=== PATIENT | male | born 1975 | race Caucasian/White ===

== ENCOUNTER 2017-05-08 18:50 | Emergency (ER) | payer OTHER ==
[~2017-05-08] VITALS: Ht 180.3 cm; Wt 100.0 kg
[~2017-05-08 18:50] MED LIST: ACET500T98; CEPH-443 PO; HYDR-762 PO; IBUP-1542 PO; IBUP200C11; IBUP800T25 PO
[2017-05-08 18:54] VITALS: Ht 180.3 cm; Wt 100.0 kg
[2017-05-08] MEDS ORDERED: KETOROLAC 30 MG INJ IV STA (19:14)
[2017-05-08] MEDS ORDERED: SOD CHLORIDE 0.9% 1,000 ML IV STA (19:14)
[2017-05-08 19:53] LABS: ADD SCAN DIFF NO
[2017-05-08 19:59] LABS: ABNORMAL IP MESSAGE 1; HEMATOCRIT 41.4 % (42.0-52.0); HEMOGLOBIN 13.8 g/dl (14.0-18.0); MEAN CORPUSCULAR HEMOGLOBIN 30.9 pg (29.0-33.0); MEAN CORPUSCULAR HGB CONC 33.3 g/dl (32.0-37.0); MEAN CORPUSCULAR VOLUME 92.8 fl (82.0-101.0); MEAN PLATELET VOLUME 10.3 fl (7.4-10.4); PLATELET COUNT 253 10^3/UL (140-415); RED BLOOD COUNT 4.46 10^6/ul (4.70-6.10); RED CELL DISTRIBUTION WIDTH 14.9 % (11.5-14.5); WHITE BLOOD COUNT 22.6 10^3/ul (4.8-10.8)
[2017-05-08 20:12] LABS: INR 0.86; PROTIME 11.7 Sec (12.2-14.2); PT RATIO 0.9
[2017-05-08 20:13] LABS: PARTIAL THROMBOPLASTIN TIME 27.5 Sec (25.0-35.0)
[2017-05-08 20:17] LABS: ADD UMIC YES; UR AMORPHOUS CRYSTAL FEW /HPF (NONE SEEN); UR ASCORBIC ACID NEGATIVE (NEGATIVE); UR BACTERIA FEW /HPF (NONE SEEN); UR BILIRUBIN (Dip) NEGATIVE (NEGATIVE); UR BLOOD (Dip) 3+ mg/dL (NEGATIVE); UR CLARITY TURBID (CLEAR); UR COLOR RED (YELLOW); UR GLUCOSE (Dip) NEGATIVE (NEGATIVE); UR KETONES (Dip) TRACE mg/dL (NEGATIVE); UR LEUKOCYTE ESTERASE (Dip) 3+ Leu/ul (NEGATIVE); UR NITRITE (Dip) NEGATIVE (NEGATIVE); UR RBC > 182 /HPF (0-5); UR SPECIFIC GRAVITY (Dip) 1.016 (1.003-1.030); UR TOTAL PROTEIN (Dip) 2+ mg/dl (NEGATIVE); UR UROBILINOGEN (Dip) 1+ mg/dL (NEGATIVE)
[2017-05-08 20:18] LABS: ALBUMIN 3.9 g/dl (3.3-4.9); ALBUMIN/GLOBULIN RATIO 1.34; BILIRUBIN,INDIRECT 0.6 mg/dl (0-1.1); BILIRUBIN,TOTAL 0.6 mg/dl (0.2-1.3); CALCIUM 9.1 mg/dl (8.4-10.2); CREATININE 1.04 mg/dl (0.61-1.24); TOTAL PROTEIN 6.8 g/dl (6.1-8.1)
[2017-05-08] MEDS ORDERED: CEFTRIAXONE 1 GM/50 ML (PMX) 50 ML IVPB ONE (20:30)
[2017-05-08 21:02] LABS: LYMPHOCYTES # 1.4 10^3/ul (0.8-2.9); MONOCYTE # 2.5 10^3/ul (0.3-0.9); NEUTROPHIL # 18.1 10^3/ul (1.6-7.5)
[2017-05-08 21:05] LABS: PLATELET ESTIMATE PLT APPEAR ADEQUATE
--- NOTE | 2017-05-08 21:17 | RADRPT ---
PROCEDURE: CT scan of the abdomen and pelvis without IV contrast. CLINICAL INDICATION: Left lower quadrant abdominal pain. TECHNIQUE: Thin section axial, coronal and sagittal images were performed through the abdomen and pelvis without contrast. Radiation Dose: CTDI: 18.5 and DLP: 1285 One or more of the following dose reduction techniques were used: - Automated exposure control. - Adjustment of the mA and/or kV according to patient size. Use of iterative reconstruction technique. COMPARISON: Chest x-ray 11/22/2016 06:18 a.m. FINDINGS: Soft tissues: Normal. Lungs and pleural spaces: There is some peripheral atelectasis in the right lower lobe. There is so me atelectasis in the dorsal lingula. Heart: The heart is normal in size. There are vascular calcifications in the left descending trevino ry artery. The liver, common bile duct and gallbladder: Liver is enlarged measuring 20 cm AP. No hepatic mass is identified. There is no evidence of gallbladder wall thickening. There is a 2.4 cm cholelith in the gallbladder. Gastrointestinal: The stomach and small bowel loops are normal. There is no evidence of a hiatal he rnia. There is a midline umbilical hernia containing fat measuring 2.6 cm AP with the neck of the h ernia measuring 2.3 cm transverse. There are small amounts of fat in the right left inguinal canals but no entrapped bowel loop. The vermiform appendix and colon are unremarkable. Pancreas: The pancreas and extrahepatic common bile duct are normal. Kidneys, bladder and adrenal glands : The adrenal glands are normal. There is a 1 mm nonobstructive nephrolith in the lower pole of the right kidney. The kidneys are otherwise normal. The urinary b ladder is unremarkable. Spleen: Normal. Lymph nodes: Normal. Reproductive system and pelvis : The seminal vesicles are enlarged. The left is larger than the rig ht. There is stranding adjacent to the seminal vesicles more prominent on the left side. The prost ate gland measures 4.5 x 3.1 cm. Bony elements: There is disk space narrowing and ventral spondylosis at L5-S1. There are ventral os teophytes off of L5. There are ventral bridging osteophytes at L5-S1. There is a ventral osteophyt e off the superior plate of T12. No bone metastasis or acute bony fracture is identified. There ar e degenerative changes around the right T9 costovertebral junction. Vasculature: There are vascular calcifications in the mid and lower abdominal aorta, common iliac ar teries, internal iliac arteries and common femoral arteries. IMPRESSION: 1. There is extensive stranding around the seminal vesicles more prominent around the left seminal vesicle than right. Etiology is unknown. Rule out inflammatory/neoplastic etiologies. Urological c onsultation should be considered. 2. Midline umbilical hernia containing fat. 3. Areas of atelectasis in the right lower lobe and dorsal lingula. 3. Atherosclerotic vascular disease also involving the coronary arteries. 5. Hepatomegaly. 6. 2.4 cm cholelith in the gallbladder. RPTAT:AAJJ Physician Alexys Date Time Electronically viewed and signed by Physician Alexys on 05/08/2017 21:16 /
[2017-05-08] MEDS ORDERED: SOD CHLORIDE 0.9% 1,000 ML IV ONE (21:30)
--- NOTE | 2017-05-08 21:51 | ERD ---
ER Documentation Chief Complaint Date/Time DATE: 05/08/17 TIME: 21:49 Chief Complaint left abdominal pain/fever x 2 days HPI Patient is a 42-year-old male with past medical history of hypertension, insomnia and depression who presents to the emergency department with left lower quadrant abdominal pain 2 days. Pain is constant and sharp in nature. Patient also reports hematuria and dysuria. Patient denies any flank pain. Patient does admit to tactile fevers and chills. Patient has not taken any antipyretics for his fever. Patient denies any upper abdominal pain, nausea, vomiting, diarrhea, rectal bleeding, chest pain, SOB or loss of consciousness. Patient denies any recent travel. No sick contacts. Patient is sexually active. ROS All systems reviewed and are negative except as per history of present illness. Medications Home Meds Active Scripts Hydrocodone/Acetaminophen ([place] 5-325 Tablet) 1 Each Tablet, 1 TAB PO Q6H Y for PAIN, #7 TAB Prov:WING WHITMAN PA-C 05/08/17 Levofloxacin* (Levofloxacin*) 250 Mg Tablet, 250 MG PO DAILY for 10 Days, TAB Prov:WING WHITMAN PA-C 05/08/17 Ibuprofen* (Motrin*) 800 Mg Tab, 800 MG PO Q6H Y for PAIN AND OR ELEVATED TEMP, #30 TAB Prov:YEE VALERA NP 04/24/15 Cephalexin* (Keflex*) 500 Mg Capsule, 500 MG PO QID for 7 Days, CAP Prov:YEE VALERA NP 04/24/15 Hydrocodone Bit-Acetaminophen* ([place]*) 10-325 Mg Tablet, 1 TAB PO Q6 Y for PAIN , #14 TAB Prov:ROGER HERRERA PA-C 04/09/15 Ibuprofen* (Motrin*) 600 Mg Tab, 600 MG PO Q6, #20 TAB Prov:ROGER HERRERA PA-C 04/09/15 Reported Medications Acetaminophen (Tylenol) 500 Mg Tab, PRN 06/07/11 Ibuprofen* (Advil*) 200 Mg Capsule, PRN 06/07/11 Allergies Allergies: Coded Allergies: No Known Allergy (Unverified , 05/08/17) PMhx/Soc History of Surgery: Yes (RT LEG ) Anesthesia Reaction: No Hx Neurological Disorder: Yes (lumbar back pain) Hx Respiratory Disorders: No Hx Cardiac Disorders: Yes (HTN) Hx Psychiatric Problems: Yes (insomnia, DEPRESSION ) Hx Miscellaneous Medical Probl: No Hx Alcohol Use: Yes Hx Substance Use: No Hx Tobacco Use: Yes Smoking Status: Current every day smoker Physical Exam Vitals Vital Signs Date Time Temp Pulse Resp B/P Pulse Ox O2 Delivery O2 Flow Rate FiO2 05/09/17 00:05 99.6 83 18 127/83 100 Room Air 05/08/17 18:54 102.5 122 20 122/79 97 Physical Exam GENERAL: Well-developed, well-nourished male. Appears in pain. HEAD: Normocephalic, atraumatic. EYES: Pupils are equally reactive bilaterally. EOMs grossly intact. No conjunctival erythema. ENT: Moist mucous membranes. No uvula deviation. No kissing tonsils. NECK: Supple. No meningismus. Normal range of motion of the neck. LUNG: Clear to auscultation bilaterally. No rhonchi, wheezing, rales or coarse breath sounds. HEART: Regular rate and rhythm. No murmurs, rubs or gallops. ABDOMEN: Soft and nondistended. Tender to palpation in the left lower quadrant. Guarding noted. Positive bowel sounds in all four quadrants. (-) McBurney's point tenderness. Left sided CVA tenderness noted. EXTREMITIES: Equal pulses bilaterally. No peripheral clubbing, cyanosis or edema. No unilateral leg swelling. NEUROLOGIC: Alert and oriented. Moving all four extremities without any difficulty. Normal speech. Steady gait. SKIN: Normal color. Warm and dry. No rashes or lesions. Result Diagram: 05/08/17193405/08/171934 Results 24 hrs Laboratory Tests Test 05/08/17 19:35 05/08/17 21:33 White Blood Count 22.610^3/ul Red Blood Count 4.4610^6/ul Hemoglobin 13.8g/dl Hematocrit 41.4% Mean Corpuscular Volume 92.8fl Mean Corpuscular Hemoglobin 30.9pg Mean Corpuscular Hemoglobin Concent 33.3g/dl Red Cell Distribution Width 14.9% Platelet Count 62576^3/UL Mean Platelet Volume 10.3fl Neutrophils % 80.0% Band Neutrophils % 3.0% Lymphocytes % 6.0% Monocytes % 11.0% Neutrophils # 18.110^3/ul Lymphocytes # 1.410^3/ul Monocytes # 2.510^3/ul Platelet Estimate PLT APPEAR ADEQUATE Prothrombin Time 11.7Sec Prothrombin Time Ratio 0.9 INR International Normalized Ratio 0.86 Activated Partial Thromboplast Time 27.5Sec Urine Color RED Urine Clarity TURBID Urine pH 6.0 Urine Specific Ramsay 1.016 Urine Ketones TRACEmg/dL Urine Nitrite NEGATIVEmg/dL Urine Bilirubin NEGATIVEmg/dL Urine Urobilinogen 1+mg/dL Urine Leukocyte Esterase 3+Dandre/ul Urine Microscopic RBC > 182/HPF Urine Microscopic WBC > 182/HPF Urine Amorphous Crystals FEW/HPF Urine Bacteria FEW/HPF Urine Hemoglobin 3+mg/dL Urine Glucose NEGATIVEmg/dL Urine Total Protein 2+mg/dl Sodium Level 140mmol/L Potassium Level 4.0mmol/L Chloride Level 97mmol/L Carbon Dioxide Level 28mmol/L Anion Gap 19 Blood Urea Nitrogen 12mg/dl Creatinine 1.04mg/dl Glucose Level 104mg/dl Lactic Acid Level 1.4mmol/L 0.7mmol/L Calcium Level 9.1mg/dl Total Bilirubin 0.6mg/dl Direct Bilirubin 0.00mg/dl Indirect Bilirubin 0.6mg/dl Aspartate Amino Transf (AST/SGOT) 24IU/L Alanine Aminotransferase (ALT/SGPT) 44IU/L Alkaline Phosphatase 49IU/L Total Protein 6.8g/dl Albumin 3.9g/dl Globulin 2.90g/dl Albumin/Globulin Ratio 1.34 Lipase 40U/L Current Medications Medications (Trade) Dose Ordered Sig/Josephine Route PRN Reason Start Time Stop Time Status Last Admin Dose Admin Sodium Chloride (NS) 1,000 ml @ 1,000 mls/hr Q1H STAT IV 05/08/17 19:14 05/08/17 20:13 DC 05/08/17 19:26 Ketorolac Tromethamine 30 mg 30 mg ONCE STAT IV 05/08/17 19:14 05/08/17 19:17 DC 05/08/17 19:29 Ceftriaxone Sodium 50 ml @ 100 mls/hr ONCE ONCE IVPB 05/08/17 20:30 05/08/17 20:59 DC 05/08/17 20:53 Sodium Chloride (NS) 1,000 ml @ 1,000 mls/hr Q1H ONCE IV 05/08/17 21:30 05/08/17 22:29 DC 05/08/17 21:31 Ceftriaxone Sodium (Rocephin) 250 mg ONCE ONCE IM 05/08/17 23:00 05/08/17 23:01 DC 05/08/17 23:46 Lidocaine (Xylocaine 1% (Mdv) 20 ml) 20 ml ONCE ONCE SC 05/08/17 23:00 05/08/17 23:01 DC 05/08/17 23:46 Azithromycin (Zithromax) 1,000 mg ONCE ONCE PO 05/08/17 23:00 05/08/17 23:01 DC 05/08/17 23:46 Procedures/MDM ED COURSE: The patient was stable throughout ED course. I kept the patient and/or family informed of laboratory and diagnostic imaging results throughout the ED course. DIAGNOSTIC IMAGING: Read by radiologist. DIAGNOSTIC IMAGING REPORT Patient: JILLIAN DEL CASTILLO : 1975 Age: 42 Sex: M MR #: [id number] DOS: 05/08/171957 Ordering MD: WING WHITMAN PA-C Location: [facility] Room/Bed: PROCEDURE: CT scan of the abdomen and pelvis without IV contrast. CLINICAL INDICATION: Left lower quadrant abdominal pain. TECHNIQUE: Thin section axial, coronal and sagittal images were performed through the abdomen and pelvis without contrast. Radiation Dose: CTDI: 18.5 and DLP: 1285 One or more of the following dose reduction techniques were used: - Automated exposure control. - Adjustment of the mA and/or kV according to patient size. Use of iterative reconstruction technique. COMPARISON: Chest x-ray 11/22/2016 06:18 a.m. FINDINGS: Soft tissues: Normal. Lungs and pleural spaces: There is some peripheral atelectasis in the right lower lobe. There is some atelectasis in the dorsal lingula. Heart: The heart is normal in size. There are vascular calcifications in the left descending coronary artery. The liver, common bile duct and gallbladder: Liver is enlarged measuring 20 cm AP. No hepatic mass is identified. There is no evidence of gallbladder wall thickening. There is a 2.4 cm cholelith in the gallbladder. Gastrointestinal: The stomach and small bowel loops are normal. There is no evidence of a hiatal hernia. There is a midline umbilical hernia containing fat measuring 2.6 cm AP with the neck of the hernia measuring 2.3 cm transverse. There are small amounts of fat in the right left inguinal canals but no entrapped bowel loop. The vermiform appendix and colon are unremarkable. Pancreas: The pancreas and extrahepatic common bile duct are normal. Kidneys, bladder and adrenal glands : The adrenal glands are normal. There is a 1 mm nonobstructive nephrolith in the lower pole of the right kidney. The kidneys are otherwise normal. The urinary bladder is unremarkable. Spleen: Normal. Lymph nodes: Normal. Reproductive system and pelvis : The seminal vesicles are enlarged. The left is larger than the right. There is stranding adjacent to the seminal vesicles more prominent on the left side. The prostate gland measures 4.5 x 3.1 cm. Bony elements: There is disk space narrowing and ventral spondylosis at L5-S1. There are ventral osteophytes off of L5. There are ventral bridging osteophytes at L5-S1. There is a ventral osteophyte off the superior plate of T12. No bone metastasis or acute bony fracture is identified. There are degenerative changes around the right T9 costovertebral junction. Vasculature: There are vascular calcifications in the mid and lower abdominal aorta, common iliac arteries, internal iliac arteries and common femoral arteries. IMPRESSION: 1. There is extensive stranding around the seminal vesicles more prominent around the left seminal vesicle than right. Etiology is unknown. Rule out inflammatory/neoplastic etiologies. Urological consultation should be considered. 2. Midline umbilical hernia containing fat. 3. Areas of atelectasis in the right lower lobe and dorsal lingula. 3. Atherosclerotic vascular disease also involving the coronary arteries. 5. Hepatomegaly. 6. 2.4 cm cholelith in the gallbladder. RPTAT:AAJJ Physician Alexys Date Time Electronically viewed and signed by Physician Alexys on 05/08/2017 21:16 JM/ CC: WING WHITMAN PA-C PROCEDURES: None. MEDICATIONS GIVEN: IV fluids, Toradol, Rocephin IV Rocephin IM, Azithromycin Patient tolerated medication well with no adverse reactions. Patient reported improvement in pain. MEDICAL DECISION MAKING: This is a 42-year-old male presents to the ED with tactile fevers, lower quadrant pain and hematuria 2 days. Vital signs were reviewed. Patient was febrile at initial presentation with a temperature of 102.5F. Patient was given Toradol here in the emergency department. Prior to discharge, patient's temperature was noted to be downtrending. Abdominal exam revealed tenderness to palpation in left lower quadrant with some guarding was noted. CBC showed WBC count of 22.6. Patient's hemoglobin level was noted to be 18.8. Slight anemia noted. CMP showed no evidence of electrolyte abnormalities, severe acidosis, alkalosis, renal failure, or liver disease. Lipase showed no evidence of acute pancreatitis. Lactic was 1.4. Repeat lactate 0.7. Blood cultures pending. qSOFA score was 0. UA showed greater than 132 WBCs, 3+ leukocyte esterase, greater than 132 RBCs. Urine culture was obtained, pending results. Patient was initially 2 L of IV fluids and Rocephin IV here in the emergency department. CT abdomen and pelvis showed There is extensive stranding around the seminal vesicles more prominent around the left seminal vesicle than right. Etiology is unknown. Rule out inflammatory/neoplastic etiologies. Urological consultation should be considered. I discussed the patient's history, imaging and blood work studies with my supervising physician Dr. Calloway. Unclear if findings are consistent with inflammatory or neoplastic changes. Patient did admit to sexual activity. GC/Chlamydia urine culture ordered. Dr. Calloway advised me to empirically treat for STD exposure given inflammatory changes in reproductive organ. Patient was given additional Rocephin IM and 1 azithromycin p.o. tab. Patient will be discharged home with Levaquin per recommendations of my supervising physician. At this time, patient's presentation is most consistent with UTI, seminal vesicle stranding, gallstones, hepatomegaly. It is unclear with this stranding is related to inflammatory vs neoplastic etiologies. I have a much lower clinical concern for acute kidney injury, diverticulosis, diverticulitis, SBO, DKA, bowel perforation, cholecystitis, choledocholithiasis, pancreatitis, nephrolithiasis, septic stone, appendicitis, constipation. I doubt true sepsis or septic shock at this time. PRESCRIPTIONS: Levaquin DISCHARGE: At this time, patient is stable for discharge and outpatient management. Patient was given a copy of all blood work and imaging obtained today. Patient was advised to follow-up with urologist for further management of his symptoms. I have instructed the patient to follow-up with his/her primary care physician in 1-2 days. I have instructed the patient to promptly return to the ER at any time for any new or worsening symptoms including increased pain, nausea, vomiting, diarrhea, fever, weakness or LOC. The patient and/or family expressed understanding of and agreement with this plan. All questions were answered. Home care instructions were provided. Departure Diagnosis: Primary Impression: UTI (urinary tract infection) Urinary tract infection type: site unspecified Hematuria presence: with hematuria Qualified Code: N39.0 - Urinary tract infection with hematuria, site unspecified Additional Impressions: Seminal vesiculitis Cholelithiasis Cholelithiasis location: gallbladder Cholecystitis presence: without cholecystitis Biliary obstruction: without biliary obstruction Qualified Code : K80.20 - Calculus of gallbladder without cholecystitis without obstruction Hepatomegaly Condition: Stable Patient Instructions: Understanding Urinary Tract Infections (UTIs) Referrals: JAYESH PRAKASH MD,BOBBY MCADAMS,LIZ CERVANTES,LEODAN JACKSON MD, MD= [facility] Additional Instructions: Follow-up with your primary care physician in the next 1-2 days. Return to the ER for any new or worsening symptoms. Follow-up with urologist. See referral information. Complete full course of antibiotics. Hydrate well. WING WHITMAN PA-C May 08, 2017 21:51
[2017-05-08] MEDS ORDERED: LIDOCAINE 1% (MDV) 20 ML INJ SC ONE (23:00)
[2017-05-08] MEDS ORDERED: AZITHROMYCIN 250 MG TAB PO ONE (23:00)
[2017-05-08] MEDS ORDERED: CEFTRIAXONE 250 MG INJ IM ONE (23:00)
[2017-05-08] MEDS ORDERED: LEVO250T9 PO (23:22)
[2017-05-08] MEDS ORDERED: HYDR-906 PO (23:23)
[2017-05-09 00:05] VITALS: BP 127/83; PULSE 83; RESP 18; TEMP 99.6
== END 2017-05-09 00:07 | disposition home or self-care (01) ==
LOC: FTE 18:50
DX: N39.0 Urinary tract infection, site not specified (principal); N49.0 Inflammatory disorders of seminal vesicle; K80.20 Calculus of gallbladder without cholecystitis without obstruction; R16.0 Hepatomegaly, not elsewhere classified; I10 Essential (primary) hypertension; F17.210 Nicotine dependence, cigarettes, uncomplicated
CPT/HCPCS: 74176; 80053; 81001; 83605; 83690; 85025; 85610; 85730; 87040; 87086; J0696; J1885; J7030; Z7610; 36415; 96372; 96374; 96375